=== PATIENT | female | born 1975 | race Caucasian/White ===

== ENCOUNTER 2017-10-09 08:54 | Outpatient (CLI) | payer OTHER | END 2017-10-09 09:19 | disposition home or self-care (01) | LOC: SONOGRAMA 08:54 | DX: R10.2 Pelvic and perineal pain (principal) ==

== ENCOUNTER 2017-10-31 08:50 | Outpatient (CLI) | payer OTHER | END 2017-10-31 09:00 | disposition home or self-care (01) | LOC: TOM 08:50 | DX: R10.2 Pelvic and perineal pain (principal); R10.9 Unspecified abdominal pain; R31.29 Other microscopic hematuria ==

== ENCOUNTER 2018-06-13 00:30 | Emergency (ER) | payer OTHER ==
[~2018-06-13] VITALS: Ht 160 cm; Wt 59.0 kg
[2018-06-13] MEDS ORDERED: MUPIROCIN22 GM TOP (02:43)
[2018-06-13] MEDS ORDERED: KETO10TA2 PO (02:43)
[2018-06-13] MEDS ORDERED: AMOX-CLAV 875-1 EACH PO (02:43)
== END 2018-06-13 03:40 ==
LOC: ER 00:30
DX: S61.102A Unspecified open wound of left thumb with damage to nail, initial encounter (principal); W23.0XXA Caught, crushed, jammed, or pinched between moving objects, initial encounter; Y93.89 Activity, other specified; Y92.89 Other specified places as the place of occurrence of the external cause; Y99.8 Other external cause status

== ENCOUNTER 2018-12-24 12:24 | Outpatient (CLI) | payer OTHER ==
[~2018-12-24 12:24] MED LIST: AMOX-CLAV 875-1 EACH PO; KETO10TA2 PO; MUPIROCIN22 GM TOP
== END 2018-12-24 14:49 | disposition home or self-care (01) ==
LOC: MAMO-SONO 12:24
DX: N63.10 Unspecified lump in the right breast, unspecified quadrant (principal); N63.20 Unspecified lump in the left breast, unspecified quadrant; Z12.31 Encounter for screening mammogram for malignant neoplasm of breast

== ENCOUNTER 2019-05-31 09:11 | Outpatient (CLI) | payer OTHER | END 2019-05-31 09:22 | disposition home or self-care (01) | LOC: LAB 09:11 | DX: E04.8 Other specified nontoxic goiter (principal); R19.5 Other fecal abnormalities; J06.9 Acute upper respiratory infection, unspecified ==

== ENCOUNTER 2019-05-31 10:08 | Outpatient (CLI) | payer OTHER | END 2019-05-31 10:26 | disposition home or self-care (01) | LOC: SONOGRAMA 10:08 | DX: E04.8 Other specified nontoxic goiter (principal) ==